=== PATIENT | female | born 1990 | race African-American/Black ===

== ENCOUNTER 2020-08-13 13:06 | Emergency (ER) | payer BC ==
[~2020-08-13] VITALS: Ht 172.7 cm; Wt 104.5 kg
--- NOTE | 2020-08-13 15:26 | RAD ---
EXAM: Left shoulder, 3 views. HISTORY: Trauma. COMPARISON: None. FINDINGS: 3 views of left shoulder obtained. There is a displaced comminuted fracture involving the h umeral head with involvement of the greater tuberosity. There is no shoulder dislocation. IMPRESSION: Displaced fracture of the humeral head involving the greater tuberosity. Electronically signed by: Meaghan Amin MD (08/13/2020 3:24 PM) [id number]
[2020-08-13] MEDS ORDERED: HYDROcodone/APAP 5/325MG 1 TAB TABLET ONE (16:19)
[2020-08-13] MEDS ORDERED: HYDROcodone/APAP 5/325MG 1 TAB TABLET PO ONE (16:30)
[2020-08-13] MEDS ORDERED: IBUP-1007 PO (17:41)
[2020-08-13] MEDS ORDERED: HYDR-2761 PO (17:41)
--- NOTE | 2020-08-13 17:42 | PHYS DOC ---
Past Medical History Past Medical History: No Pertinent History Past Surgical History: No Surgical History Smoking Status: Never Smoker Alcohol Use: Occasionally General Adult EDM: Chief Complaint: SHOULDER INJURY HPI: HPI: Patient is a 29 year old presents to the emergency department with complaints of left shoulder pain after she fell down some wooden steps last night. Patient states she was drinking alcohol and stumbled and fell and landed on her left shoulder. Patient states she did hit the left side of her head, denies loss of consciousness. Patient denies any other physical complaints or physical concerns. Patient denies headaches, visual disturbances, neck pain, chest pain, back pain, chest congestion or nasal congestion. Patient denies rashes of her skin. Patient states she is currently on her menstrual cycle. Patient denies any allergies to medications, denies taking any prescription medications at home. Review of Systems: Review of Systems: 14 body systems of review of systems have been reviewed. See HPI for pertinent positives and negative responses, otherwise all other systems are negative, nonpertinent or noncontributory. Heart Score: C/O Chest Pain: No Risk Factors: Risk Factors: DM, Current or recent (<one month) smoker, HTN, HLP, family history of CAD, obesity. Risk Scores: Score 0 - 3: 2.5% MACE over next 6 weeks - Discharge Home Score 4 - 6: 20.3% MACE over next 6 weeks - Admit for Clinical Observation Score 7 - 10: 72.7% MACE over next 6 weeks - Early Invasive Strategies Current Medications: Current Medications Medications (Trade) Dose Ordered Sig/Rafa Start Time Stop Time Status Last Admin Dose Admin Acetaminophen/ Hydrocodone Bitart (Lortab 5/325) 1 tab STK-MED ONCE 08/13/20 16:19 08/13/20 16:20 DC Allergies: Allergies: Allergies Coded Allergies Type Severity Reaction Last Updated Verified No Known Drug Allergies 08/13/20 No Physical Exam: PE: Constitutional: Well developed, well nourished, no acute distress, non-toxic appearance. HENT: Normocephalic, atraumatic, bilateral external ears normal, oropharynx moist, no oral exudates, nose normal. Bruise to the left temporal area, no depressions appreciated of the skull or face. Patient denies pain to palpation around the bruising area. No crepitus appreciated. No nasal drainage, no laureano sign, no raccoon sign, no drainage from bilateral ears, bilateral TMs within normal limits. No lymphadenopathy appreciated of the head or neck. Eyes: PERRLA, EOMI, conjunctiva normal, no discharge. Neck: Normal range of motion, no tenderness, supple, no stridor. No midline spinal tenderness, no meningismus signs, no nuchal rigidity appreciated. Cardiovascular:Heart rate regular rhythm, heart sounds S1-S2 Lungs & Thorax: Bilateral breath sounds clear to auscultation Abdomen: Bowel sounds normal, soft, no tenderness. Skin: Warm, dry, no erythema, no rash. Back: No tenderness to palpation. Extremities: No tenderness, no cyanosis, no clubbing, ROM intact, no edema. Except for left upper extremity, patient complains of pain to the right shoulder. No crepitus appreciated during passive range of motion, pain elicited during passive range of motion, distal cap refill less than 2 seconds, 2+ radial pulse of the left upper extremity. No swelling noted of the right shoulder. No ecchymosis of the skin surfaces or adjacent structures around the left shoulder. Neurologic: Alert and oriented X 3, normal motor function, normal sensory function, no focal deficits noted. Psychologic: Affect normal, judgement normal, mood normal. Current Patient Data: Vital Signs: Vital Signs Date Time Temp Pulse Resp B/P (MAP) Pulse Ox O2 Delivery O2 Flow Rate FiO2 08/13/20 16:21 Room Air 08/13/20 13:59 98.3 78 18 115/74 (88) 98 98.3 EKG: EKG: [] Radiology/Procedures: Radiology/Procedures: PATIENT: NESTOR MARTIN ACCOUNT: [id number] : 1990 LOCATION: ER AGE: 29 SEX: F EXAM STATUS: REG ER ORD. PHYSICIAN: AGUILAR BREWER APRN REASON: SHOULDER INJ, pt fell lt shoulder pain PROCEDURE: SHOULDER 2+V LEFT EXAM: Left shoulder, 3 views. HISTORY: Trauma. COMPARISON: None. FINDINGS: 3 views of left shoulder obtained. There is a displaced comminuted fracture involving the humeral head with involvement of the greater tuberosity. There is no shoulder dislocation. IMPRESSION: Displaced fracture of the humeral head involving the greater tuberosity. Electronically signed by: Meaghan Lafleur MD (08/13/2020 3:24 PM) [id number] DICTATED and SIGNED BY: MEAGHAN LAFLEUR MD DATE: 08/13/20 [id number] 0 Course & Med Decision Making: Course & Med Decision Making Pertinent Labs and Imaging studies reviewed. (See chart for details) 29-year-old female, vital signs reviewed, presents emergency department complaining of left shoulder pain after a fall. Physical examination was concerning for possible bony injury of her left shoulder. Patient has bruising to the left temporal area, offered CT head, patient denied need for this. Patient states she did not lose consciousness. She does not hurt in that area. X-ray of the left shoulder was ordered. Was given p.o. Burnham for pain. X-ray imaging read by house radiologist concerning for fracture of humeral head. Discussed findings with patient, will place patient in sling and give orthopedic surgeon follow-up on discharge instructions. Patient gave verbal understanding of x-ray imaging findings, follow-up with orthopedic surgeon, states will call for appointment tomorrow, gave verbal understanding of strict return to ER precautions and concerns, patient discharged home without incident. Dragon Disclaimer: SpringCM Disclaimer: This electronic medical record was generated, in whole or in part, using a voice recognition dictation system. Departure Departure Impression: Primary Impression: Left humeral fracture Qualified Codes: S42.295A - Other nondisplaced fracture of upper end of left humerus, initial encounter for closed fracture Disposition: 01 DC HOME SELF CARE/HOMELESS Condition: GOOD Referrals: NO PCP (PCP) MARY BAZZI MD Patient Instructions: Shoulder Fracture Additional Instructions: You have fractured a bone in your upper arm, I have discussed this with you and recommended you wear a sling for comfort and immobilization until you are seen by an front desk specialist. I have given you a follow-up doctor front desk specialist Dr. Bazzi. Please call him tomorrow for an appointment to be seen this week. Let them know you have a fractured proximal left humerus fracture and are wearing a sling. I have prescribed for you pain medication, I have given you a work excuse for the next 3 days. Please return to the emergency department for worsening symptoms or other concerns. EMERGENCY DEPARTMENT GENERAL DISCHARGE INSTRUCTIONS Thank you for coming to [facility] Emergency Department (ED) today and trusting us with you care. We trust that you had a positive experience in our Emergency Department. If you wish to speak to the department management, you may call the Director at [phone]. YOUR FOLLOW UP INSTRUCTIONS ARE FOLLOWS: 1. Do you have a private Doctor? If you do not have a private doctor, please ask for a resource list of physicians or clinics that may be able to assist you with follow up care. 2. The Emergency Physicain has interpreted your x-rays. The X-Ray specialist will also review them. If there is a change in the findings, you will be notified in 48 hours when at all possible. 3. A lab test or culture has been done, your results will be reviewed and you will be notified if you need a change in treatment. ADDITIONAL INSTRUCTIONS AND INFORMATION: 1. Your care today has been supervised by a physician who is specially trained in emergency care. Many problems require more than one evaluation for a complete diagnosis and treatment. We recommend that you schedule your follow up appointment as recommended to ensure complete treatment of you illness or injury. If you are unable to obtain follow up care and continue to have a problem, or if your condition worsens, we recommend that you return to the ED. 2. We are not able to safely determine your condition over the phone nor are we able to give sound medical advice over the phone. For these safety reasons, if you call for medical advice we will ask you to come to the ED for further evaluation. 3. If you have any questions regarding these discharge instructions please call the ED at [phone]. SAFETY INFORMATION: In the interest of safety, wellness, and injury prevention; we encourage you to wear your sealbelt, if you smoke; quite smoking, and we encourage family to use a protec tive helmet for bicycling and other sporting events that present an increased risk for head injury. IF YOUR SYMPTOMS WORSEN OR NEW SYMPTOMS DEVELOP, OR YOU HAVE CONCERNS ABOUT YOUR CONDITION; OR IF YOUR CONDITION WORSENS WHILE YOU ARE WAITING FOR YOUR FOLLOW UP APPOINTMENT; EITHER CONTACT YOUR PRIMARY CARE DOCTOR, THE PHYSICIAN WHOSE NAME AND NUMBER YOU WERE GIVEN, OR RETURN TO THE ED IMMEDIATELY. Scripts Hydrocodone Bit/Acetaminophen (HYDROCODONE-APAP 5-325 ) 1 Tab Tablet 1 TAB PO PRN Q6HRS PRN for PAIN, #15 TAB 0 Refills Prov: AGUILAR BREWER APRN 08/13/20 Ibuprofen (IBUPROFEN) 600 Mg Tablet 600 MG PO PRN Q6HRS PRN for INFLAMMATION, #20 TAB 0 Refills Prov: AGUILAR BREWER APRN 08/13/20 AGUILAR BREWER APRN Aug 13, 2020 17:42
[2020-08-13 17:54] VITALS: BP 135/84
== END 2020-08-13 17:54 | disposition home or self-care (01) ==
LOC: ER 13:06
DX: S42.295A Other nondisplaced fracture of upper end of left humerus, initial encounter for closed fracture (principal); W10.8XXA Fall (on) (from) other stairs and steps, initial encounter; Y93.89 Activity, other specified; Y92.89 Other specified places as the place of occurrence of the external cause; Y99.8 Other external cause status
CPT/HCPCS: 73030; 99283